=== PATIENT | female | born 1990 | race Hispanic/Latino ===

== ENCOUNTER 2018-07-10 04:43 | Observation (INO) | payer SELFPAY ==
[~2018-07-10] VITALS: Ht 172.7 cm; Wt 108.0 kg
[2018-07-10] MEDS ORDERED: ONDANSETRON HCL INJ 2 MG/ML VIAL IV STA (05:11)
[2018-07-10] MEDS ORDERED: CEFTRIAXONE SOD 1 GM VIAL IV ONE (05:15)
[2018-07-10] MEDS ORDERED: KETOROLAC TROMETHAMINE 30 MG/ML VIAL IV STA (05:27)
--- NOTE | 2018-07-10 06:53 | Diagnostic Imaging Report ---
EXAM: CT Abdomen and Pelvis WITH contrast INDICATION: Abdominal pain, vomiting COMPARISON: None. TECHNIQUE: Abdomen and pelvis were scanned utilizing a multidetector helical scanner from the lung base to the pubic symphysis after administration of IV contrast. Coronal and sagittal reformations were obtained. Routine protocol was performed. Scan was performed when during portal venous phase. IV CONTRAST: 100 mL of Isovue-300 ORAL CONTRAST: None RADIATION DOSE: Total DLP: 886.32 mGy*cm Estimated effective dose: (DLP x 0.015 x size factor) mSv COMPLICATIONS: None FINDINGS: LINES and TUBES: None. LOWER THORAX: Unremarkable HEPATOBILIARY: No focal hepatic lesions. No biliary ductal dilation. GALLBLADDER: There are cholecystectomy clips. SPLEEN: No splenomegaly. PANCREAS: No focal masses or ductal dilatation. ADRENALS: No adrenal nodules KIDNEYS/URETERS: Kidneys enhance symmetrically. No hydronephrosis. No cystic or solid mass lesions. No stones. GI TRACT: No abnormal distention, wall thickening, or evidence of bowel obstruction. The appendix measures 1.1 cm in diameter with a proximal appendicolith best seen on series 2, image 76 consistent with acute appendicitis PELVIC ORGANS/BLADDER: Unremarkable. LYMPH NODES: No lymphadenopathy. VESSELS: Unremarkable. PERITONEUM / RETROPERITONEUM: No free air or fluid. BONES: Unremarkable. SOFT TISSUES: Unremarkable. IMPRESSION: 1. Findings are compatible with acute appendicitis secondary to a proximal appendicolith. The appendix measures 1.1 cm in diameter. Signed by: Dr. Ryan Meredith M.D. on 07/10/2018 6:49 AM
[2018-07-10] MEDS ORDERED: D5.45%NS/KCL 20MEQ 1,000 ML IV SCH (07:01)
[2018-07-10] MEDS ORDERED: PIPER-TAZ 3.375 GM / NS 50ML IV SCH (07:15)
[2018-07-10] MEDS ORDERED: ONDANSETRON HCL INJ 2 MG/ML VIAL IV PRN ×2 (07:15→10:15)
[2018-07-10] MEDS ORDERED: HYDROMORPHONE 1MG/1ML INJ IV PRN (07:15)
[2018-07-10 08:10] VITALS: BP 98/58
[2018-07-10] MEDS ORDERED: BUPIVACAINE HCL 0.5% INJ 30 ML VIAL INJ ONE (08:48)
[2018-07-10] MEDS ORDERED: MIDAZOLAM HCL 2 MG/2 ML VIAL ONE (09:10)
[2018-07-10] MEDS ORDERED: FENTANYL CITRATE/PF 100MCG/2 ML INJ ONE (09:10)
[2018-07-10] MEDS ORDERED: MORPHINE SULFATE INJ 4 MG/ML INJ IV PRN (10:15)
--- NOTE | 2018-07-10 10:25 | Pre Op History & Physical ---
CHIEF COMPLAINT: Abdominal pain. HISTORY OF PRESENT ILLNESS: Patient is a 27-year-old female, who presented with complaints of abdominal pain which started last night. She associates nausea and vomiting. Came to the emergency room where CT of the abdomen and pelvis revealed findings suggestive of acute appendicitis. PAST MEDICAL HISTORY: Significant for previous cholecystectomy. She has no chronic medical problems. MEDICATIONS: No current medications. ALLERGIES: NO KNOWN ALLERGIES. FAMILY HISTORY: Noncontributory. SOCIAL HISTORY: The patient smokes cigarettes, does not drink alcohol. REVIEW OF SYSTEMS: As stated above. She has had no fever, no weight loss. PHYSICAL EXAMINATION GENERAL: The patient is awake and alert, in no distress. VITAL SIGNS: Normal. HEENT: Reveals no scleral icterus. NECK: Has no masses. CHEST: Equal breath sounds are clear bilaterally. CARDIOVASCULAR: Regular rate and rhythm. Normal S1 and S2 without murmur, S3, or S4. ABDOMEN: Tender in the lower abdomen and right lower quadrant with questionable signs of peritonitis. EXTREMITIES: No edema. Pulses are palpable. NEUROLOGIC: Intact. ASSESSMENT: A 27-year-old female with acute appendicitis, now admitted to the hospital. PLAN: Laparoscopic appendectomy. Procedure was explained to the patient. Job#: [id number] VALERIANO
[2018-07-10] MEDS: PIPER-TAZ 3.375 GM 50 ML IV SCH ×3 (11:20→23:32)
[2018-07-10] MEDS: SODIUM CHLORIDE 0.9% 1000ML 1,000 ML IV SCH ×2 (11:20→23:32)
[2018-07-10 11:38] VITALS: BP 98/58
[2018-07-10 12:52] VITALS: BP 103/56
[2018-07-10] MEDS ORDERED: HYDROMORPHONE 2MG/ML 2 MG/ML ML IV PRN (13:15)
--- NOTE | 2018-07-10 14:03 | Operative Report ---
DATE OF PROCEDURE: July 10, 2018 PREOPERATIVE DIAGNOSIS: Acute appendicitis. POSTOPERATIVE DIAGNOSIS: Acute appendicitis. PROCEDURES: Diagnostic laparoscopy, laparoscopic appendectomy. RESEARCH AFFILIATE: None. ANESTHESIA: General. INDICATIONS AND FINDINGS: Patient is a 27-year-old female who presented with complaints of 1-day history of abdominal pain, localized to right lower quadrant. At surgery, patient was found to have acutely inflamed appendix. TECHNIQUE: After adequate general endotracheal anesthesia with patient in supine position, the abdomen was prepped and draped in a sterile fashion with Paulino solution. Skin in the umbilicus was infiltrated with 0.5% Marcaine. Incision was made at the umbilicus. Abdominal wall was elevated and a Veress needle was introduced. Pneumoperitoneum was then created. A 10 mm trocar and cannula was then passed through the umbilical wound. Laparoscopic camera was introduced. Initial laparoscopy revealed acutely inflamed appendix. A 12 mm trocar and cannula was placed suprapubically and a 5 mm trocar and cannula placed in right upper quadrant, these were placed under direct vision. Cecum was elevated. A window was created between the base of the appendix and the mesoappendix. The base of the appendix was divided close to the cecum with Endo CIARA stapler. Mesoappendix was also divided with Endo CIARA stapler, freeing the appendix completely. Hemostasis at each staple line was seen to be adequate. Appendix was placed into an Endopouch and brought out through the suprapubic cannula. Care was taken that it did not touch the abdominal wall. The area of the appendectomy was inspected for hemostasis, which was seen to be adequate. It was irrigated with saline. All fluid aspirated and inspected once again for hemostasis, which was seen to be adequate. Instruments and cannulas were then removed. Pneumoperitoneum was evacuated. Wounds were then closed. Fascia in the umbilical and suprapubic wound closed with 0 Vicryl. Skin to all wounds closed with kim. Sterile dressings applied to each wound. The patient tolerated the procedure well. Estimated blood loss was 10 mL. There were no complications. All counts were correct. Patient was taken to the recovery room in satisfactory condition. Job#: [id number] PEMA
[2018-07-10 16:43] VITALS: BP 117/52
[2018-07-10] MEDS ORDERED: ONDANSETRON HCL INJ 2 MG/ML VIAL ONE (17:34)
[2018-07-10] MEDS ORDERED: PROPOFOL IV EMULSION 10 MG/ML 20 ML VIAL ONE (17:34)
[2018-07-10] MEDS ORDERED: SUCCINYLCHOLINE 200 MG/10 ML SYR ONE (17:34)
[2018-07-10] MEDS ORDERED: DEXAMETHASONE SOD PHOS INJ 4 MG/ML VIAL ONE (17:34)
[2018-07-10] MEDS ORDERED: KETOROLAC TROMETHAMINE 30 MG/ML VIAL ONE (17:34)
[2018-07-10] MEDS ORDERED: DESFLURANE 240 ML BTL INH ONE (17:34)
[2018-07-10] MEDS ORDERED: ACETAMINOPHEN 1000 MG/100 ML IV ONE (17:34)
[2018-07-10 20:00] VITALS: BP 112/56
[2018-07-10 20:05] VITALS: BP 112/56
[2018-07-11] VITALS: BP 107/53
[2018-07-11 04:00] VITALS: BP 100/58
[2018-07-11] MEDS: HYDROCODONE/APAP 5MG-325MG TAB PO PRN ×2 (05:44→14:30)
[2018-07-11] MEDS: PIPER-TAZ 3.375 GM 50 ML IV SCH ×2 (05:44→11:50)
[2018-07-11] MEDS: SODIUM CHLORIDE 0.9% 1000ML 1,000 ML IV SCH (05:50)
[2018-07-11 07:30] VITALS: BP 97/55
[2018-07-11 08:00] VITALS: BP 97/55
[2018-07-11 11:52] VITALS: BP 104/60
[2018-07-11] MEDS ORDERED: ULTRACET TABLE1 EACH (13:36)
[2018-07-11 16:40] VITALS: BP 109/55
== END 2018-07-11 16:41 | disposition home or self-care (01) ==
LOC: FSED 04:43 → ERHOLD 07:03 → MED/SURG 08:18
PROVIDERS: ADMIT Surgery; ATTEND Surgery
DX: K35.3 Acute appendicitis with localized peritonitis (principal); Z90.49 Acquired absence of other specified parts of digestive tract; F17.210 Nicotine dependence, cigarettes, uncomplicated
CPT/HCPCS: 44970; 74177; 80053; 81003; 81025; 85025; 88304; 96361; 99284; G0378 ×2; J0696; J1100; J1885; J2250; J2270; J2405; J2543 ×2; J7030

== ENCOUNTER 2019-01-15 15:28 | Emergency (ER) | payer SELFPAY ==
[~2019-01-15] VITALS: Ht 172.7 cm; Wt 108.0 kg
[~2019-01-15 15:28] MED LIST: ULTRACET TABLE1 EACH
== END 2019-01-15 15:42 | disposition short-term general hospital (02) ==
LOC: FSED 15:28
DX: R51 Headache (principal)